=== PATIENT | female | born 1995 | race Caucasian/White ===

== ENCOUNTER 2017-04-28 03:45 | Emergency (ER) | payer OTHER ==
[~2017-04-28] VITALS: Ht 154.9 cm; Wt 81.6 kg
[~2017-04-28 03:45] MED LIST: 'PARAFON FORTE500 M1 PO; ACULAR 3 ML3 M1 OP; ALLEGRA180 MG PO; AMOXICILLIN500 M2 PO; AMOXIL250 M1 PO; AUGMENTIN 400 M1 CTB PO; BACTRIM DS 8001 TA1 PO; CIPRO250 MG PO; CLARITIN10 MG PO; CYCLOBENZAPRINE10 MG PO; FLEXERIL5 MG PO; KEFLEX500 MG PO; MACROBID100 M1 PO; MOTRIN400 MG PO; Motrin,Rufen800 MG PO; NAPROSYN500 MG PO; NITROFURANTOIN100 MG PO; NKHM; NORCO 325 MG-51 TAB PO; PERCOCET 325 MG1 TA6 PO; PHENERGAN25 M1 PO; PRENATAL1 TA5 PO; PRENATAL1 TA6 PO; PROTONIX40 MG PO; TOBREX OPHTH S2.5 ML OPH; ULTRAM50 MG PO; ZANTAC 150150 MG PO; ZITHROMAX Z PA250 MG PO; ZOFRAN ODT4 MG PO; ZOFRAN ODT4 MG SL; Zofran4 MG PO
[2017-04-28] MEDS ORDERED: NAPROXEN500 MG PO (04:40)
== END 2017-04-28 04:35 | disposition home or self-care (01) ==
LOC: ED 03:45
DX: R07.89 Other chest pain (principal); R07.81 Pleurodynia; F17.200 Nicotine dependence, unspecified, uncomplicated

== ENCOUNTER 2017-05-05 19:23 | Emergency (ER) | payer OTHER ==
[~2017-05-05] VITALS: Ht 160 cm; Wt 62.6 kg
[~2017-05-05 19:23] MED LIST changes: +NAPROXEN500 MG PO
[2017-05-05 19:49] LABS: BASO # 0.1 10*3/uL (0.0-0.1); BASO % 0.5 % (0.0-1.0); EOS # 0.4 10*3/uL (0.0-0.4); EOS % 3.8 % (1.0-4.0); HEMOGLOBIN 12.3 g/dl (12.0-16.0); LYMPH # 3.6 10*3/uL (1.3-4.4); LYMPH % 38.3 % (27.0-41.0); MEAN CELL VOLUME 87.2 fl (81.0-99.0); MEAN CORPUSCULAR HGB 28.2 pg (27.0-31.0); MEAN CORPUSCULAR HGB CONC 32.4 g/dl (33.0-37.0); MEAN PLATELET VOLUME 10.3 fl (9.6-12.3); MONO # 0.6 10*3/uL (0.1-1.0); MONO % 6.6 % (3.0-9.0); NEUT # 4.7 10*3/uL (2.3-7.9); NEUT % 50.6 % (47.0-73.0); PLATELET COUNT AUTOMATED 309 10*3/uL (130-400); RED BLOOD COUNT 4.36 10*6/uL (4.10-5.10); RED CELL DISTRI WIDTH 13.6 % (0-14.5); WHITE BLOOD COUNT 9.3 10*3/uL (4.8-10.8)
[2017-05-05 20:03] LABS: BILIRUBIN NEGATIVE (NEGATIVE); BLOOD NEGATIVE (NEGATIVE); CLARITY SL CLOUDY (CLEAR); COLOR YELLOW (YELLOW); GLUCOSE NEGATIVE (NEGATIVE); KETONE TRACE (NEGATIVE); LEUKO ESTERASE NEGATIVE (NEGATIVE); NITRITE NEGATIVE (NEGATIVE); PROTEIN TRACE (NEGATIVE); SPECIFIC GRAVITY 1.015 (1.005-1.030); UROBILINOGEN 0.2 E.U./dl (0.2-1.0)
[2017-05-05 20:05] LABS: ALBUMIN 3.5 gm/dl (3.1-4.5); ALKALINE PHOSPHATASE 65 U/L (45-117); BILIRUBIN, TOTAL 0.2 mg/dl (0.2-1.0); BUN 17 mg/dl (7-24); CARBON DIOXIDE 27 mmol/L (21-32); CHLORIDE 102 mmol/L (98-107); EST GLOM FILT AFRICAN AMERICAN > 60 ml/min; GLUCOSE 98 mg/dL (65-99); MAGNESIUM 1.9 mg/dL (1.5-2.1); SGOT/AST 18 IU/L (3-35); SGPT/ALT 20 U/L (12-78); SODIUM 138 mmol/L (136-145); TOTAL PROTEIN 7.4 gm/dL (6.4-8.2)
[2017-05-05 20:07] LABS: B-hCG (QUALITATIVE) NEGATIVE (NEGATIVE)
[2017-05-05 20:12] LABS: BACTERIA TRACE; MUCOUS 1+
[2017-05-05 20:13] LABS: URINE REFLEX COMMENT NO (NO)
[2017-05-05 20:20] LABS: URINE AMPHETAMINES > 1000 (1000ng/ml); URINE BARBITURATES < 200 (200ng/ml); URINE COCAINE > 300 (300ng/ml)
[2017-05-05] MEDS ORDERED: ZOFRAN ODT4 MG SL (21:47)
[2017-05-05] MEDS ORDERED: Motrin,Rufen800 MG PO (21:47)
== END 2017-05-05 22:00 | disposition home or self-care (01) ==
LOC: ED 19:23
PROVIDERS: Emergency Medicine Emergency Medical Services
DX: N83.292 Other ovarian cyst, left side (principal); N23 Unspecified renal colic; F17.200 Nicotine dependence, unspecified, uncomplicated

== ENCOUNTER 2017-12-19 20:40 | Emergency (ER) | payer OTHER ==
[~2017-12-19] VITALS: Wt 72.6 kg
[2017-12-19] MEDS ORDERED: BACTROBAN CREAM15 GM PO (21:01)
[2017-12-19] MEDS ORDERED: SEPTDS PO (21:01)
[2017-12-19] MEDS ORDERED: CEPHALEXIN500 M1 PO (21:01)
== END 2017-12-19 20:59 | disposition home or self-care (01) ==
LOC: ED 20:40
DX: L02.01 Cutaneous abscess of face (principal); L03.211 Cellulitis of face; L02.414 Cutaneous abscess of left upper limb; L02.413 Cutaneous abscess of right upper limb; F17.200 Nicotine dependence, unspecified, uncomplicated; Z79.899 Other long term (current) drug therapy

== ENCOUNTER 2017-12-21 04:02 | Emergency (ER) | payer OTHER ==
[~2017-12-21] VITALS: Ht 154.9 cm; Wt 79.4 kg
[~2017-12-21 04:02] MED LIST changes: +BACTROBAN CREAM15 GM PO; +CEPHALEXIN500 M1 PO; +SEPTDS PO
== END 2017-12-21 04:51 | disposition home or self-care (01) ==
LOC: ED 04:02
DX: T78.40XA Allergy, unspecified, initial encounter (principal); L50.9 Urticaria, unspecified; F17.200 Nicotine dependence, unspecified, uncomplicated; X58.XXXA Exposure to other specified factors, initial encounter

== ENCOUNTER 2018-06-07 09:05 | Emergency (ER) | payer OTHER ==
[~2018-06-07] VITALS: Ht 154.9 cm; Wt 77.1 kg
[2018-06-07] MEDS ORDERED: CLINDAMYCIN150 MG PO (09:18)
[2018-06-07] MEDS ORDERED: ZOFRAN4 MG PO (09:18)
[2018-06-07] MEDS ORDERED: NAPROSYN500 MG PO (09:18)
== END 2018-06-07 09:22 | disposition home or self-care (01) ==
LOC: ED 09:05
DX: L02.412 Cutaneous abscess of left axilla (principal); L02.01 Cutaneous abscess of face; R03.0 Elevated blood-pressure reading, without diagnosis of hypertension

== ENCOUNTER 2019-08-15 23:25 | Inpatient (IN) | payer OTHER ==
[~2019-08-15] VITALS: Ht 154.9 cm; Wt 93.0 kg
--- NOTE | ~2019-08-15 | EKG ---
[place], [place] ELECTROCARDIOGRAM REPORT NAME: JARAD ALFARO UNIT #: [id number] ROOM: [facility] DOCTOR: EPIPHANY DRAFT REPORT BIRTHDATE: [birth year] [facility] Test Date: 2019-08-16 Test Time: 00:17:37 Pat Name: JARAD ALFARO Department: Room: [facility] Gender: F Ware[employer] Receiving Supervisor: Farhad Martinez : 1995 Requested By: TITO MARTINEZ Order Number: [id number] Reading MD: Anirudh Geller MD Measurements Intervals [place] Rate: 82 P: 47 CO: 173 QRS: 67 QRSD: 80 T: 58 QT: 365 QTc: 427 Interpretive Statements Sinus rhythm Probable left atrial enlargement ST elev, probable normal early repol pattern Compared to ECG 07/29/2018 20:52:39 ST (T wave) deviation now present Sinus tachycardia no longer present Electronically Signed On 08-16-2019 7:08:24 PST by Anirudh Geller MD CM:EKGRPT:ELECTROCARDIOGRAM REPORT [id number] TITO MARTINEZ MD EPIPHANY DRAFT REPORT TITO MARTINEZ MD
[~2019-08-15 23:25] MED LIST changes: +CLINDAMYCIN150 MG PO; +ZOFRAN4 MG PO
[2019-08-15 23:30] VITALS: BP 0/0
--- NOTE | 2019-08-15 23:30 | NUR ---
AT BEDSIDE PROVIDED VERBAL ORDER OF 1MG NARCAN IM TO BE ADMINISTERED.@[id number] AFTER MULTIPLE ATTEMPTS FOR IV ACCESS, 45 IO ESTABLISHED LEFT KNEE.NS INFUSING. PT AWOKE ON ACCESS OF IO AND BEGAN THRASHING IN BED, PT IN AND OUT OF CONSIOUSNESS, EASILY AROUSED WITH LOUD VERBAL STIMULI.PT UNABLE TO PROVIDE ANY INFORMATION AT THIS TIME.
[2019-08-16] VITALS (7 sets, daily range): BP systolic 88–137; BP diastolic 61–106
--- NOTE | 2019-08-16 00:26 | NUR ---
VERBAL CONSENT GIVEN, STEFAN RODRIGUEZ PRESENT, TO UPDATE TY VIA PHONE.
[2019-08-16 00:32] LABS: URINE AMPHETAMINES > 1000 (1000ng/ml); URINE BARBITURATES < 200 (200ng/ml); URINE BENZODIAZEPINES < 200 (200ng/ml); URINE CANNABINOIDS (THC) < 50 (50ng/ml); URINE COCAINE < 300 (300ng/ml); URINE METHADONE < 300 (300ng/ml); URINE OPIATES < 300 (300ng/ml)
[2019-08-16 00:34] LABS: URINE PHENCYCLIDINE < 25 (25ng/ml)
[2019-08-16 00:36] LABS: BASO % 0.3 % (0.0-1.0); EOS # 0.2 10*3/uL (0.0-0.4); EOS % 1.8 % (1.0-4.0); HEMATOCRIT 43.7 % (37.0-47.0); LYMPH # 3.2 10*3/uL (1.3-4.4); LYMPH % 24.2 % (27.0-41.0); MEAN CORPUSCULAR HGB 30.8 pg (27.0-31.0); MEAN PLATELET VOLUME 9.7 fl (9.6-12.3); MONO # 0.5 10*3/uL (0.1-1.0); NEUT # 8.9 10*3/uL (2.3-7.9); NEUT % 67.6 % (47.0-73.0); PLATELET COUNT AUTOMATED 326 10*3/uL (130-400); RED BLOOD COUNT 4.55 10*6/uL (4.10-5.10); RED CELL DISTRI WIDTH 13.9 % (0-14.5); WHITE BLOOD COUNT 13.1 10*3/uL (4.8-10.8)
--- NOTE | 2019-08-16 00:37 | NUR ---
PT A&O AT THIS TIME.COOPERATIVE.PT REPORTS SHE SOMETIMES USES HEROIN BUT DOES NOT RECALL IF SHE HAD ANYTHING TONIGHT.PT STATES "I DO NOT REMEMBER ANYTHING".
--- NOTE | 2019-08-16 00:40 | NUR ---
PT C/O LEFT LEG PAIN AT SITE OF IO.IO FLUSHED AND HAS GOOD BLOOD RETURN.INFUSION OF NS CONTINUES.MD AWARE OF PT C/O PAIN.
--- NOTE | 2019-08-16 00:48 | NUR ---
MD STERN AT BEDSIDE TO SPEAK WITH PT.
[2019-08-16 00:50] LABS: ACT PARTIAL THROMBO TIME 25.7 SECONDS (20.0-32.1); INTERNATIONAL NORM RATIO 0.9 (2.0-3.5)
[2019-08-16 00:56] LABS: ALBUMIN 3.5 gm/dl (3.1-4.5); ALKALINE PHOSPHATASE 74 U/L (45-117); BUN 14 mg/dl (7-24); CHLORIDE 102 mmol/L (98-107); CREATININE 1.12 mg/dL (0.55-1.02); POTASSIUM 5.1 mmol/L (3.5-5.1); SGOT/AST 62 IU/L (3-35); SGPT/ALT 114 U/L (12-78); SODIUM 139 mmol/L (136-145); TOTAL PROTEIN 7.7 gm/dL (6.4-8.2)
[2019-08-16 00:58] LABS: ACETAMINOPHEN (TYLENOL) < 5.0 ug/ml (10-30); ETHYL ALCOHOL < 3.0 mg/dl (<3); TROPONIN I < 0.015 ng/ml (<0.045)
--- NOTE | 2019-08-16 00:59 | NUR ---
LAB CALLED WITH CRITICAL LACTIC ACID LEVEL OF 3.5.MD STERN NOTIFIED.
--- NOTE | 2019-08-16 03:00 | NUR ---
A 24, admitted to [facility]U, under the services of MARLYN Arevalo DO with a diagnosis of OVERDOSE. Chief complaint is UNRESPONSIVE UPON ARRIVAL. Patient arrived via stretcher from ER. Monitor applied. Initial assessment completed. Vital signs taken and recorded. MARLYN AREVALO DO notified of admission to the unit. Orders received. See assessment for past medical history, medications and allergies. Patient and/or family oriented to unit. [facility] visitation policy reviewed. Clothing/patient valuable form completed. REBECCA COLE
--- NOTE | 2019-08-16 03:14 | NUR ---
MRSA SWAB COLLECTED AND SENT TO LAB.
[2019-08-16 03:28] LABS: BILIRUBIN NEGATIVE (NEGATIVE); BLOOD TRACE-INTACT (NEGATIVE); CLARITY SL CLOUDY (CLEAR); COLOR YELLOW (YELLOW); GLUCOSE 2+ (NEGATIVE); KETONE NEGATIVE (NEGATIVE); LEUKO ESTERASE NEGATIVE (NEGATIVE); NITRITE POSITIVE (NEGATIVE); PH 6.5 (5.0-9.0); SPECIFIC GRAVITY 1.025 (1.005-1.030); UROBILINOGEN 0.2 E.U./dl (0.2-1.0)
[2019-08-16 03:36] LABS: BACTERIA 4+
[2019-08-16 05:53] LABS: BUN 11 mg/dl (7-24); CHLORIDE 113 mmol/L (98-107); CREATININE 0.71 mg/dL (0.55-1.02); SODIUM 142 mmol/L (136-145)
[2019-08-16 05:56] LABS: CHOLESTEROL 117 mg/dL (<200); HDL CHOLESTEROL 54 mg/dl (40-60); LDL CHOLESTEROL 56 mg/dL (9-159); PHOSPHOROUS 3.4 mg/dL (2.5-4.9); TRIGLYCERIDES 35 mg/dl (<150); VLDL CHOLESTEROL 7 mg/dL (6-40)
[2019-08-16 05:57] LABS: POTASSIUM 3.8 mmol/L (3.5-5.1)
[2019-08-16 06:07] LABS: BASO % 0.2 % (0.0-1.0); EOS # 0.1 10*3/uL (0.0-0.4); EOS % 0.4 % (1.0-4.0); LYMPH # 3.1 10*3/uL (1.3-4.4); LYMPH % 22.8 % (27.0-41.0); MEAN CELL VOLUME 95.2 fl (81.0-99.0); MEAN CORPUSCULAR HGB 30.1 pg (27.0-31.0); MEAN CORPUSCULAR HGB CONC 31.6 g/dl (33.0-37.0); MEAN PLATELET VOLUME 10.1 fl (9.6-12.3); MONO % 7.3 % (3.0-9.0); NEUT # 9.1 10*3/uL (2.3-7.9); NEUT % 68.3 % (47.0-73.0); PLATELET COUNT AUTOMATED 291 10*3/uL (130-400); RED BLOOD COUNT 3.99 10*6/uL (4.10-5.10); RED CELL DISTRI WIDTH 13.7 % (0-14.5); WHITE BLOOD COUNT 13.4 10*3/uL (4.8-10.8)
[2019-08-16] MEDS ORDERED: CEFUROXIME AXE500 MG PO (08:46)
--- NOTE | 2019-08-16 10:00 | NUR ---
PATIENT DISCHARGED TO HOME. ALL PERSONAL BELONGINGS SENT HOME WITH PATIENT. IO, MATE SHIP AND PENDLETON CATHETER REMOVED. PATIENT INSTRUCTED TO FOLLOW UP WITH PCP IN ONE WEEK. INFORMED THAT ONE PRESCRIPTION WAS SENT TO HER PHARMACY.
== END 2019-08-16 11:01 | disposition home or self-care (01) | DRG 871 ==
LOC: ED 23:25 → EDHOLD 08-16 02:39 → ICCU 08-16 02:45
PROVIDERS: Emergency Medicine Emergency Medical Services; Student in an Organized Health Care Education/Training Program; ADMIT Emergency Medicine
DX: A41.9 Sepsis, unspecified organism (principal); N17.0 Acute kidney failure with tubular necrosis; N39.0 Urinary tract infection, site not specified; T50.991A Poisoning by other drugs, medicaments and biological substances, accidental (unintentional), initial encounter; R65.20 Severe sepsis without septic shock; R74.0 Nonspecific elevation of levels of transaminase and lactic acid dehydrogenase [LDH]; F17.210 Nicotine dependence, cigarettes, uncomplicated; R73.9 Hyperglycemia, unspecified; E83.41 Hypermagnesemia; F15.10 Other stimulant abuse, uncomplicated; E66.9 Obesity, unspecified; Z71.6 Tobacco abuse counseling; Z98.891 History of uterine scar from previous surgery; Z80.8 Family history of malignant neoplasm of other organs or systems; Z68.38 Body mass index [BMI] 38.0-38.9, adult; Y92.89 Other specified places as the place of occurrence of the external cause

== ENCOUNTER 2019-10-23 00:01 | Emergency (ER) | payer OTHER ==
[~2019-10-23] VITALS: Ht 154 cm; Wt 95.3 kg
[~2019-10-23 00:01] MED LIST changes: +CEFUROXIME AXE500 MG PO
[2019-10-23] MEDS ORDERED: CORTISPORIN SUS10 ML OT (00:33)
== END 2019-10-23 00:56 | disposition home or self-care (01) ==
LOC: ED 00:01
DX: H60.92 Unspecified otitis externa, left ear (principal); F14.90 Cocaine use, unspecified, uncomplicated; F17.200 Nicotine dependence, unspecified, uncomplicated

== ENCOUNTER 2019-12-01 18:05 | Emergency (ER) | payer OTHER ==
[~2019-12-01] VITALS: Ht 154.9 cm; Wt 81.6 kg
[~2019-12-01 18:05] MED LIST changes: +CORTISPORIN SUS10 ML OT
[2019-12-01 18:10] VITALS: BP 136/62
[2019-12-01 19:02] LABS: URINE AMPHETAMINES > 1000 (1000ng/ml); URINE BARBITURATES < 200 (200ng/ml); URINE BENZODIAZEPINES < 200 (200ng/ml); URINE CANNABINOIDS (THC) < 50 (50ng/ml); URINE COCAINE > 300 (300ng/ml); URINE METHADONE < 300 (300ng/ml); URINE OPIATES < 300 (300ng/ml)
[2019-12-01 19:06] LABS: URINE PHENCYCLIDINE < 25 (25ng/ml)
[2019-12-01 19:49] LABS: BILIRUBIN 1+ (NEGATIVE); BLOOD NEGATIVE (NEGATIVE); CLARITY CLEAR (CLEAR); COLOR YELLOW (YELLOW); GLUCOSE NEGATIVE (NEGATIVE); KETONE 2+ (NEGATIVE); LEUKO ESTERASE TRACE (NEGATIVE); NITRITE NEGATIVE (NEGATIVE); PH 6.5 (5.0-9.0); SPECIFIC GRAVITY 1.025 (1.005-1.030); UROBILINOGEN 0.2 E.U./dl (0.2-1.0)
[2019-12-01 19:50] LABS: BACTERIA 1+; EPITHELIAL CELLS 31-40; MUCOUS 4+
== END 2019-12-01 19:20 | disposition home or self-care (01) ==
LOC: ED 18:05 → EDHOLD 18:29 → ED 18:29 → EDHOLD 12-02 05:27
PROVIDERS: Emergency Medicine
DX: O99.321 Drug use complicating pregnancy, first trimester (principal); F11.90 Opioid use, unspecified, uncomplicated; O21.8 Other vomiting complicating pregnancy; Z79.899 Other long term (current) drug therapy

== ENCOUNTER 2024-06-11 16:39 | Emergency (ER) | payer OTHER ==
[2024-06-11 17:02] LABS: BASO % 0.3 % (0.0-1.0); EOS # 0.1 10*3/uL (0.0-0.4); EOS % 2.3 % (1.0-4.0); HEMATOCRIT 39.7 % (37.0-47.0); LYMPH # 1.9 10*3/uL (1.3-4.4); LYMPH % 30.5 % (27.0-41.0); MEAN CELL VOLUME 91.1 fl (81.0-99.0); MEAN CORPUSCULAR HGB 29.8 pg (27.0-31.0); MEAN CORPUSCULAR HGB CONC 32.7 g/dl (33.0-37.0); MEAN PLATELET VOLUME 9.6 fl (9.6-12.3); MONO # 0.5 10*3/uL (0.1-1.0); MONO % 7.6 % (3.0-9.0); NEUT # 3.7 10*3/uL (2.3-7.9); NEUT % 59.1 % (47.0-73.0); PLATELET COUNT AUTOMATED 248 10*3/uL (130-400); RED BLOOD COUNT 4.36 10*6/uL (4.10-5.10); RED CELL DISTRI WIDTH 13.4 % (0-14.5); WHITE BLOOD COUNT 6.2 10*3/uL (4.8-10.8)
[2024-06-11 17:19] LABS: ALKALINE PHOSPHATASE 57 U/L (46-116); B-hCG (QUALITATIVE) NEGATIVE (NEGATIVE); BUN 12 mg/dl (9-23); CHLORIDE 105 mmol/L (98-107); CPK 74 U/L (34-171); ETHYL ALCOHOL < 3.0 mg/dl (<3); POTASSIUM 3.5 mmol/L (3.4-5.1); SGPT/ALT 13 U/L (5-49); TOTAL PROTEIN 6.9 gm/dL (6.0-8.0)
[2024-06-11 17:20] LABS: ACT PARTIAL THROMBO TIME 27.1 SECONDS (20.0-32.1)
[2024-06-11] MEDS ORDERED: BUPRENORPHINE-1 EAC2 SL (18:05)
[2024-06-11] MEDS ORDERED: NARCAN4 MG NAS (18:05)
== END 2024-06-11 18:36 | disposition left against medical advice (07) ==
LOC: ED 16:39
PROVIDERS: Emergency Medicine
DX: T40.411A Poisoning by fentanyl or fentanyl analogs, accidental (unintentional), initial encounter (principal); F11.10 Opioid abuse, uncomplicated; R23.0 Cyanosis; R06.81 Apnea, not elsewhere classified; M79.672 Pain in left foot; E66.9 Obesity, unspecified; F17.200 Nicotine dependence, unspecified, uncomplicated; Z79.899 Other long term (current) drug therapy; Z68.30 Body mass index [BMI] 30.0-30.9, adult; Z98.890 Other specified postprocedural states; Z53.29 Procedure and treatment not carried out because of patient's decision for other reasons; Y92.89 Other specified places as the place of occurrence of the external cause